=== PATIENT | female | born 1975 | race Caucasian/White ===

== ENCOUNTER 2017-09-09 10:01 | Day surgery (SDC) | payer MEDICAID ==
[~2017-09-09] VITALS: Ht 170.2 cm; Wt 136.1 kg
[2017-09-09] MEDS ORDERED: DIPHENHYDRAMINE INJ 50 MG/ML VIAL ONE (11:01)
[2017-09-09] MEDS ORDERED: MIDAZOLAM HCL 2 MG/2 ML VIAL (VERSED) ONE (11:01)
[2017-09-09 11:03] LABS: HCG,QUAL RESULT NEGATIVE (NEGATIVE)
[2017-09-09] MEDS ORDERED: IOHEXOL 50 ML IV ONE (12:04)
[2017-09-09] MEDS ORDERED: MIDAZOLAM HCL 5 MG/5 ML VIAL ONE (12:37)
[2017-09-09] MEDS ORDERED: MIDAZOLAM HCL 5 MG/5 ML VIAL IVP ONE (15:15)
[2017-09-09] MEDS ORDERED: DIPHENHYDRAMINE INJ 50 MG/ML VIAL IVP ONE (15:15)
[2017-09-09 16:18] VITALS: BP_SYST 124
== END 2017-09-09 14:00 | disposition home or self-care (01) ==
LOC: SDS 10:01 → SMU 10:08 → SDS 14:00
PROVIDERS: ATTEND Internal Medicine
DX: M51.16 Intervertebral disc disorders with radiculopathy, lumbar region (principal); G89.29 Other chronic pain; Z79.899 Other long term (current) drug therapy; Z98.890 Other specified postprocedural states; Z87.891 Personal history of nicotine dependence; M96.1 Postlaminectomy syndrome, not elsewhere classified; M79.1 Myalgia
CPT/HCPCS: 62323; 76000; 84703; J1200; J2250; J3465; J7120; Q9967